=== PATIENT | female | born 1990 ===

== ENCOUNTER 2016-12-21 18:22 | Emergency (ER) | payer OTHER ==
[2016-12-21 18:26] VITALS: BP 121/71; PULSE 68; RESP 16; TEMP 98.3; O2SAT 100
[2016-12-21] MEDS ORDERED: Naproxen 500 MG TAB PO ONE ×2 (18:31→18:47)
--- NOTE | 2016-12-21 18:44 | ED PDOC ---
HPI: Wound Care - HPI Time Seen by Provider: 12/21/16 18:26 Chief Complaint (Nursing): Abnormal Skin Integrity Chief Complaint (Provider): Abnormal Skin Integrity History Per: Patient Exam Limitations: no limitations Onset/Duration Of Symptoms: Days (x2) Current Symptoms Are (Timing): Still Present Location Of Injury: Right: Hand Quality Of Symptoms: Swollen Additional Complaint(s): 26 year old female presents to ED with complaints of a right hand laceration sustained x2 days ago and has no relevant past medical history. States that she fell down the stairs and attempted to hold a nearby wooden railing before it broke off, lacerating her right hand. (+) pain and swelling to the area. (-) foreign body sensation, numbness, or tingling. PCP: None Past Medical History Reviewed: Historical Data, Nursing Documentation, Vital Signs Vital Signs: Last Vital Signs Temp 98.3 F 12/21/16 18:24 Pulse 68 12/21/16 18:24 Resp 16 12/21/16 18:24 BP 121/71 12/21/16 18:24 Pulse Ox 100 12/21/16 18:24 - Medical History PMH: No Chronic Diseases - Family History Family History: States: No Known Family Hx - Living Arrangements Living Arrangements: With Family - Social History Current smoker - smoking cessation education provided: No Ex-Smoker (has not smoked in the last 12 months): No Alcohol: None Drugs: Denies - Home Medications Home Medications: Ambulatory Orders Medication Instructions Recorded Cephalexin [cephalexin] 500 mg PO Q6 #28 cap 12/21/16 - Allergies Allergies/Adverse Reactions: Allergies Allergy/AdvReac Type Severity Reaction Status Date / Time No Known Allergies Allergy Verified 12/21/16 18:24 Review of Systems ROS Statement: Except As Marked, All Systems Reviewed And Found Negative Musculoskeletal: Positive for: Hand Pain (right hand pain and swelling) Physical Exam - Reviewed Nursing Documentation Reviewed: Yes Vital Signs Reviewed: Yes - Physical Exam Appears: Positive for: Non-toxic, No Acute Distress Skin: Positive for: Normal Color, Warm, Dry Respiratory: Negative for: Respiratory Distress Pulses-Radial (L): 2+ Pulses-Radial (R): 2+ Extremity: Positive for: Tenderness (mild tenderness to thenar surface of right hand with semi-circular, linear, healing, laceration around plantar surface of 1st MCP joint), Swelling (mild swelling to thenar surface of right hand). Negative for: Deformity, Other ((-) active bleeding, palpable foreign body, snuff box tenderness) Neurologic/Psych: Positive for: Alert, Oriented. Negative for: Motor/Sensory Deficits - ECG O2 Sat by Pulse Oximetry: 100 (RA) Pulse Ox Interpretation: Normal - Progress ED Course And Treament: Wound irrigated and cleansed thoroughly with NS. DSD applied by RN. Medical Decision Making Medical Decision Makin Initial impression: delayed presentation of laceration Initial plan: * XR RIGHT HAND 1843 XR shows no fracture. Patient is medically stable for discharge home. Scribe Attestation: Documented by Elmira Trent, acting as a scribe for João Tillman PA-C. Provider Scribe Attestation: All medical record entries made by the Scribe were at my direction and personally dictated by me. I have reviewed the chart and agree that the record accurately reflects my personal performance of the history, physical exam, medical decision making, and the department course for this patient. I have also personally directed, reviewed, and agree with the discharge instructions and disposition. Disposition - Clinical Impression Clinical Impression: Laceration of finger with delay in treatment, Hand injury - Disposition Referrals: [facility] [place] [Outside] [facility] [Outside] Disposition Time: 19:00 Condition: STABLE Prescriptions: Cephalexin [cephalexin] 500 mg PO Q6 #28 cap Instructions: Hand Sprain (ED), Laceration Without Closure (ED) Forms: [facility] (Greek) Print Language: NEPALI
--- NOTE | 2016-12-21 18:55 | RAD ---
PROCEDURE: Right Hand Radiographs. HISTORY: trauma COMPARISON: None. FINDINGS: BONES: Normal. No fracture. JOINTS: Normal. No osteoarthritic changes. SOFT TISSUES: Normal. OTHER FINDINGS: None. IMPRESSION: Normal right hand radiographs.
== END 2016-12-21 19:14 | disposition home or self-care (01) ==
LOC: H.ER 18:22
DX: S61.411A Laceration without foreign body of right hand, initial encounter (principal); W26.8XXA Contact with other sharp object(s), not elsewhere classified, initial encounter; Y92.89 Other specified places as the place of occurrence of the external cause

== ENCOUNTER 2017-05-05 07:12 | Emergency (ER) | payer SELFPAY ==
[2017-05-05 07:27] VITALS: O2SAT 99
[2017-05-05 08:14] VITALS: RESP 18
--- NOTE | 2017-05-05 08:23 | ED PDOC ---
HPI: Abdomen Time Seen by Provider: 05/05/17 07:54 Chief Complaint (Nursing): Female Genitourinary Chief Complaint (Provider): Abdominal Pain History Per: Patient History/Exam Limitations: no limitations Onset/Duration Of Symptoms: Days (x2) Current Symptoms Are (Timing): Still Present Additional Complaint(s): 27-year-old female with no past medical history presents to the ER complaining of lower abdominal pain with associated dysuria and urinary frequency, since last night. Denies any fever or diarrhea. Patient did vomit this morning. She found out she was on 04/11/17 at a visit with her ruffling hemmer automatic; LMP was in February. Patient has not had an ultrasound yet but states her next appointment is 05/16. States she only has vaginal bleeding during sexual intercourse. Additionally, patient complains of a cough, sore throat, and body aches since last night. PMD: Provider TBD Abnormal Vaginal Bleeding: No Last Menstral Period: 02/2017 Past Medical History Reviewed: Historical Data, Nursing Documentation, Vital Signs Vital Signs: Last Vital Signs Temp 99.0 F 05/05/17 13:43 Pulse 90 05/05/17 13:43 Resp 18 05/05/17 13:43 BP 103/68 05/05/17 13:43 Pulse Ox 99 05/05/17 13:43 - Medical History PMH: No Chronic Diseases - Surgical History Surgical History: No Surg Hx - Family History Family History: States: Unknown Family Hx - Social History Current smoker - smoking cessation education provided: No Alcohol: None Drugs: Denies - Home Medications Home Medications: Ambulatory Orders Medication Instructions Recorded Cephalexin [cephalexin] 500 mg PO Q6 #28 cap 12/21/16 Nitrofurantoin Macrocrystals 100 mg PO BID #14 cap 05/05/17 [Macrobid] Ondansetron ODT [Zofran ODT] 4 mg PO Q8 PRN #12 odt 05/05/17 - Allergies Allergies/Adverse Reactions: Allergies Allergy/AdvReac Type Severity Reaction Status Date / Time No Known Allergies Allergy Verified 05/05/17 08:11 Review of Systems ROS Statement: Except As Marked, All Systems Reviewed And Found Negative Constitutional: Positive for: Other (body aches). Negative for: Fever, Chills ENT: Positive for: Throat Pain Respiratory: Positive for: Cough Gastrointestinal: Positive for: Vomiting (1 episode this morning), Abdominal Pain (lower). Negative for: Diarrhea Genitourinary Female: Positive for: Dysuria, Frequency. Negative for: Vaginal Bleeding (except during sexual intercourse) Physical Exam - Reviewed Nursing Documentation Reviewed: Yes Vital Signs Reviewed: Yes - Physical Exam Appears: Positive for: Non-toxic, No Acute Distress Head Exam: Positive for: ATRAUMATIC, NORMAL INSPECTION, NORMOCEPHALIC Skin: Positive for: Normal Color, Warm, Dry Eye Exam: Positive for: EOMI, Normal appearance, PERRL ENT: Positive for: Normal ENT Inspection, TM Is/Are (normal bilaterally). Negative for: Pharyngeal Erythema, Tonsillar Exudate Neck: Positive for: Normal, Painless ROM Cardiovascular/Chest: Positive for: Regular Rate, Rhythm. Negative for: Murmur Respiratory: Positive for: Normal Breath Sounds. Negative for: Accessory Muscle Use, Respiratory Distress Pulses-Radial (L): 2+ Pulses-Radial (R): 2+ Gastrointestinal/Abdominal: Positive for: Soft, Tenderness (mild suprapubic tenderness). Negative for: Guarding, Rebound Back: Positive for: Normal Inspection. Negative for: L CVA Tenderness, R CVA Tenderness, Vertebral Tenderness Extremity: Positive for: Normal ROM, Capillary Refill (< 2 sec). Negative for: Pedal Edema, Deformity Neurologic/Psych: Positive for: Alert, Oriented (x3) - Laboratory Results Result Diagrams: 05/05/17 08:54 05/05/17 08:54 - ECG O2 Sat by Pulse Oximetry: 99 (RA) Pulse Ox Interpretation: Normal Medical Decision Making Medical Decision Making: Initial Impression: 1. Abdominal pain in . Differential includes: complication from , UTI 2. URI. Differential includes influenza, viral URI Time: 08:26 Initial Plan: --Influenza A B --Rapid strep test --ED urine --ED urine dipstick --beta-HCG, quantitative --BMP --CBC w/ differential --US OB Trasvag --Reevaluation Time: 9:44 OB ULTRASOUND: FINDINGS: UTERUS: Gestational sac: Single intrauterine gestation. Sac measures 2.8 centimeter, compatible with estimated gestational age of 7 weeks, 5 days. Yolk sac: Measures 0.4 centimeter. pole: [place]-rump length measures 1.2 centimeter, compatible with estimated gestational age of 7 weeks, 3 days. Heart rate: 158 bpm. age (Ultrasound estimated): 7 weeks, 4 days. Tara-gestational hemorrhage: None. Date of delivery (Ultrasound estimated) : 12/18/2017. Uterus measures 12.1 x 8.7 x 6.4 cm. Anteverted. Normal in size and appearance. CERVIX: Long and closed. No cervical abnormality seen. RIGHT OVARY: Measures 3.6 x 3.8 x 1.9 cm. No mass lesion. Normal flow. LEFT OVARY: Not visualized. FREE FLUID: None. OTHER FINDINGS: None. IMPRESSION: Single viable intrauterine gestation with average ultrasound age of 7 weeks, 4 days. heart rate 158 beats per minute. Nonvisualization of the left ovary. Labs reviewed, flu and strep negative. Beta-HCG is 89,944.00. Urine dip indicative of UTI. Clinical Impression: UTI, Abdominal Upon provider evaluation patient is medically stable, and requires no further treatment in the ED at this time. Patient will be discharged with Rx for macrobid and zofran. Counseling was provided and all questions were answered regarding diagnosis and need for follow up with PMD or OB. There is agreement to discharge plan. Return if symptoms persist or worsen. Scribe Attestation: Documented by Milly Escalante, acting as a scribe for Beverley Monaco MD Provider Scribe Attestation: All medical record entries made by the Scribe were at my direction and personally dictated by me. I have reviewed the chart and agree that the record accurately reflects my personal performance of the history, physical exam, medical decision making, and the department course for this patient. I have also personally directed, reviewed, and agree with the discharge instructions and disposition. Disposition - Clinical Impression Clinical Impression: Urinary tract infection, Abdominal pain affecting - Patient ED Disposition Is Patient to be Admitted: No Doctor Will See Patient In The: Office Counseled Patient/Family Regarding: Studies Performed, Diagnosis, Need For Followup, Rx Given - Disposition Referrals: [facility] [Outside] Disposition: Routine/Home Disposition Time: 13:33 Condition: GOOD Additional Instructions: Take your medications as instructed. Follow up with your PCP in 2-3 days. Prescriptions: Nitrofurantoin Macrocrystals [Macrobid] 100 mg PO BID #14 cap Ondansetron ODT [Zofran ODT] 4 mg PO Q8 PRN #12 odt PRN Reason: Nausea/Vomiting Instructions: Urinary Tract Infection in Women (DC), Abdominal Pain in (ED) - POA Present On Arrival: None
[2017-05-05 08:59] LABS: BASO % 0.2 % (0.0-2.0); EOS % 0.3 % (0.0-4.0); HEMOGLOBIN 11.8 g/dL (12.0-16.0); LYMPH # 0.4 K/uL (1.0-4.3); LYMPH % 4.6 % (20.0-40.0); MEAN CORPUSCULAR HEMOGLOBIN 27.6 pg (27.0-31.0); MEAN CORPUSCULAR HGB CONC 32.9 g/dL (33.0-37.0); MONO # 0.4 K/uL (0.0-0.8); MONO % 4.2 % (0.0-10.0); NEUT # 7.7 K/uL (1.8-7.0); NEUT % 90.7 % (50.0-75.0); PLATELET COUNT 258 K/uL (130-400); RBC 4.27 Mil/uL (3.80-5.20); RED CELL DISTRIBUTION WIDTH 14.1 % (11.5-14.5); WHITE BLOOD COUNT 8.5 K/uL (4.8-10.8)
[2017-05-05 09:13] LABS: BLOOD UREA NITROGEN 5 mg/dl (7-17); CALCIUM 9.2 mg/dL (8.4-10.2); GFR AFRICAN-AMERICAN > 60; GFR NON-AFRICAN AMERICAN > 60
--- NOTE | 2017-05-05 09:46 | US ---
PROCEDURE: OB Pelvic Ultrasound HISTORY: lower abdominal pain COMPARISON: Pelvic ultrasound dated 08/11/2008. FINDINGS: UTERUS: Gestational sac: Single intrauterine gestation. Sac measures 2.8 centimeter, compatible with estimated gestational age of 7 weeks, 5 days. Yolk sac: Measures 0.4 centimeter. pole: [place]-rump length measures 1.2 centimeter, compatible with estimated gestational age of 7 weeks, 3 days. Heart rate: 158 bpm. age (Ultrasound estimated): 7 weeks, 4 days. Tara-gestational hemorrhage: None. Date of delivery (Ultrasound estimated) : 12/18/2017. Uterus measures 12.1 x 8.7 x 6.4 cm. Anteverted. Normal in size and appearance. CERVIX: Long and closed. No cervical abnormality seen. RIGHT OVARY: Measures 3.6 x 3.8 x 1.9 cm. No mass lesion. Normal flow. LEFT OVARY: Not visualized. FREE FLUID: None. OTHER FINDINGS: None. IMPRESSION: Single viable intrauterine gestation with average ultrasound age of 7 weeks, 4 days. heart rate 158 beats per minute. Nonvisualization of the left ovary.
[2017-05-05 10:01] LABS: LYMPHOCYTE 4 % (20-50); MONOCYTE 3 % (0-10); NEUTROPHIL 93 % (42-75); TOTAL CELLS COUNTED 100
[2017-05-05 10:02] LABS: PLATELET ESTIMATE NORMAL (NORMAL)
[2017-05-05 10:03] LABS: HYPOCHROMIC SLIGHT
[2017-05-05 13:43] VITALS: BP 103/68; PULSE 90; TEMP 99
== END 2017-05-05 13:45 | disposition home or self-care (01) ==
LOC: H.ER 07:12
DX: O23.40 Unspecified infection of urinary tract in pregnancy, unspecified trimester (principal)